=== PATIENT | female | born 1990 | race American Indian/Alaskan Native ===

== ENCOUNTER 2022-06-05 07:14 | Emergency (ER) | payer OTHER ==
[2022-06-05 08:35] LABS: Alanine Aminotransferase 18 units/L (7-56); Albumin 5.2 g/dL (3.9-5); BUN/Creatinine Ratio 10; Blood Urea Nitrogen 8 mg/dL (7-17); Calcium 10.2 mg/dL (8.4-10.2); Hemolysis Index 8
[2022-06-05 09:11] LABS: Basophils % (Auto) 0.5 % (0.0-1.8); Eosinophils % (Auto) 0.3 % (0.0-4.3); Hematocrit 45.9 % (30.3-42.9); Hemoglobin 15.7 gm/dl (10.1-14.3); Lymphocytes # (Auto) 2.1 K/mm3 (1.2-5.4); Lymphocytes % (Auto) 22.5 % (13.4-35.0); Mean Corpuscular HGB Conc 34 % (30-34); Mean Corpuscular Volume 99 fl (79-97); Monocytes # (Auto) 0.7 K/mm3 (0.0-0.8); Monocytes % (Auto) 7.2 % (0.0-7.3); Platelet Count 272 K/mm3 (140-440); Red Blood Count 4.62 M/mm3 (3.65-5.03); Red Cell Distribution Width 12.6 % (13.2-15.2)
[2022-06-05] MEDS ORDERED: SODIUM CHLORIDE 0.9% 500 ML 500 ML IV ONE (12:02)
[2022-06-05] MEDS ORDERED: METOCLOPRAMIDE 10 MG/2 ML INJ IV ONE (12:02)
[2022-06-05] MEDS ORDERED: diphenhydrAMINE 50 MG/ML VIAL IV ONE (12:02)
--- NOTE | 2022-06-05 12:03 | Emergency Department Report ---
ED General Adult HPI - General Chief complaint: Nausea/Vomiting/Diarrhea Stated complaint: 5 DAYS NO SOLIDS OR LIQUIDS Time Seen by Provider: 06/05/22 11:07 Source: patient, RN notes reviewed Mode of arrival: Ambulatory Limitations: No Limitations - History of Present Illness Initial comments: The patient was evaluated in the emergency department for symptoms described in the history of present illness. He/she was evaluated in the context of the [facility] COVID-19 pandemic, which necessitated consideration that the patient might be at risk for infection with the virus that causes COVID-19. Institutional protocols and algorithms that pertain to the evaluation of patients at risk for COVID-19 are in a state of rapid change based on information released by regulatory bodies including the CDC and federal and state organizations. These policies and algorithms were followed during the patient's care in the emergency department. Please note that these policies, procedures and recommendations changed on a rapid basis. During the history and physical examination, I am chaperoned by Ralph Schreiber. This patient is a 32-year-old female who states that she is not , who is a longtime marijuana consumer, occasional cigar smoker, who presents to the department today with a complaint of painless nausea and vomiting, which improves with taking a hot bath or hot shower. The patient denies headache, neck pain, chest pain, abdominal pain, shortness of breath and dysuria. The she is much improved with Reglan and fluids here in the emergency room. She last consumed marijuana about a week ago. She consumed hookah over the weekend, and is concerned that her symptoms may be related to hookah consumption. -: days(s) Severity scale (0 -10): 0 Consistency: now resolved Worsens with: none - Related Data Previous Rx's Medication Instructions Recorded Last Taken Type Birdie Root [Birdie] 250 mg PO QID PRN #30 capsule 06/05/22 Unknown Rx Metoclopramide [Reglan] 10 mg PO QID PRN #30 tablet 06/05/22 Unknown Rx Potassium Chloride [K-Dur] 20 meq PO BID #60 tab 06/05/22 Unknown Rx Promethazine [Phenergan] 25 mg SD Q6HR PRN #15 supp.rect 06/05/22 Unknown Rx Allergies Allergy/AdvReac Type Severity Reaction Status Date / Time latex Allergy Unknown Verified 06/05/22 07:28 Latex, Natural Rubber Allergy Unknown Verified 06/05/22 07:28 morphine Allergy Unknown Verified 06/05/22 07:28 ED Review of Systems ROS: Stated complaint: 5 DAYS NO SOLIDS OR LIQUIDS Other details as noted in HPI Comment: All other systems reviewed and negative Gastrointestinal: nausea, vomiting. denies: abdominal pain, diarrhea Genitourinary: denies: dysuria ED Past Medical Hx - Past Medical History Previous Medical History?: No - Surgical History Additional Surgical History: - Social History Smoking Status: Former Smoker - Medications Home Medications: Home Medications Medication Instructions Recorded Confirmed Last Taken Type Birdie Root [Birdie] 250 mg PO QID PRN #30 capsule 06/05/22 Unknown Rx Metoclopramide [Reglan] 10 mg PO QID PRN #30 tablet 06/05/22 Unknown Rx Potassium Chloride [K-Dur] 20 meq PO BID #60 tab 06/05/22 Unknown Rx Promethazine [Phenergan] 25 mg SD Q6HR PRN #15 supp.rect 06/05/22 Unknown Rx ED Physical Exam - General Limitations: No Limitations General appearance: alert, in no apparent distress - Head Head exam: Present: atraumatic, normocephalic - Eye Eye exam: Present: normal appearance, EOMI. Absent: nystagmus - ENT ENT exam: Present: normal exam, normal orophraynx, mucous membranes moist, normal external ear exam - Neck Neck exam: Present: normal inspection, full ROM. Absent: tenderness, meningismus - Respiratory Respiratory exam: Present: normal lung sounds bilaterally. Absent: respiratory distress, wheezes, rales, rhonchi, stridor, decreased breath sounds - Cardiovascular Cardiovascular Exam: Present: regular rate, normal rhythm, normal heart sounds. Absent: bradycardia, tachycardia, irregular rhythm, systolic murmur, diastolic murmur, rubs, gallop - GI/Abdominal GI/Abdominal exam: Present: soft, normal bowel sounds. Absent: distended, tenderness, guarding, rebound, rigid, pulsatile mass - Extremities Exam Extremities exam: Present: normal inspection, full ROM, normal capillary refill, other (2+ pulses noted in the bilateral upper and lower extremities. There is no palpable cord. negative Homans sign. Muscular compartments are soft. The pelvis is stable.). Absent: pedal edema, calf tenderness - Back Exam Back exam: Present: normal inspection, full ROM. Absent: tenderness, CVA tenderness (R), CVA tenderness (L), paraspinal tenderness, vertebral tenderness - Neurological Exam Neurological exam: Present: alert, oriented X3, normal gait, other (No facial droop. Tongue midline. Extraocular movements intact bilaterally. Facial sensation intact to light touch in V1, V2, V3 distribution bilaterally. 5 and a 5 strength in 4 extremities. Sensation intact to light touch in 4 extremities.). Absent: motor sensory deficit - Psychiatric Psychiatric exam: Present: normal affect, normal mood - Skin Skin exam: Present: warm, dry, intact, normal color. Absent: rash ED Course Vital Signs 06/05/22 06/05/22 07:32 12:41 Temperature 98.6 F Pulse Rate 63 76 Respiratory 16 Rate Blood Pressure 124/84 Blood Pressure 123/83 [Left] O2 Sat by Pulse 99 Oximetry - Reevaluation(s) Reevaluation #1: 06/05/22 14:11 Differential diagnosis, include but not limited to: Cannabinoid hyperemesis syndrome, dehydration, renal insufficiency, hepatic insufficiency Assessment and plan: 31-year-old female who is medically healthy, presenting with painless nausea and vomiting, which improves with taking a hot bath and hot shower. She is much improved with supportive care here in the department. This is most likely cannabinoid hyperemesis syndrome. Abdomen is soft and benign, without rebound, guarding or peritoneal signs. Laboratory studies essentially unremarkable with exception of minimal hypokalemia. Patient advised to discontinue marijuana consumption. She is advised as to the natural history of cannabinoid hyperemesis syndrome. The patient is observed in this department for hours without clinical decompensation. No active vomiting at this time. Can be discharged with as needed nausea medication, potassium supplementation, diet lifestyle modification and recommendations. All questions are answered. Return precautions are reviewed - Pulse Oximetry Interpretation Digit-Finger Initial Pulse Oximetry Readin O2 Sat by Pulse Oximetry: 99 Actions Taken: none ED Medical Decision Making - Lab Data Result diagrams: 06/05/22 07:49 06/05/22 07:49 Vital Signs 06/05/22 06/05/22 07:32 12:41 Temperature 98.6 F Pulse Rate 63 76 Respiratory 16 Rate Blood Pressure 124/84 Blood Pressure 123/83 [Left] O2 Sat by Pulse 99 Oximetry Lab Results 07/14/22 07/14/22 07/14/22 Range/Units 07:49 07:49 08:07 WBC 9.2 (4.5-11.0) K/mm3 RBC 4.62 (3.65-5.03) M/mm3 Hgb 15.7 H (10.1-14.3) gm/dl Hct 45.9 H (30.3-42.9) % MCV 99 H (79-97) fl MCH 34 H (28-32) pg MCHC 34 (30-34) % RDW 12.6 L (13.2-15.2) % Plt Count 272 (140-440) K/mm3 Lymph % (Auto) 22.5 (13.4-35.0) % [place] % (Auto) 7.2 (0.0-7.3) % Eos % (Auto) 0.3 (0.0-4.3) % Baso % (Auto) 0.5 (0.0-1.8) % Lymph # (Auto) 2.1 (1.2-5.4) K/mm3 [place] # (Auto) 0.7 (0.0-0.8) K/mm3 Eos # (Auto) 0.0 (0.0-0.4) K/mm3 Baso # (Auto) 0.0 (0.0-0.1) K/mm3 Seg Neutrophils % 69.5 (40.0-70.0) % Seg Neutrophils # 6.4 (1.8-7.7) K/mm3 Sodium 135 L (137-145) mmol/L Potassium 2.7 L* (3.6-5.0) mmol/L Chloride 93.1 L (98-107) mmol/L Carbon Dioxide 27 (22-30) mmol/L Anion Gap 18 mmol/L BUN 8 (7-17) mg/dL Creatinine 0.8 (0.6-1.2) mg/dL Estimated GFR > 60 ml/min BUN/Creatinine Ratio 10 % Glucose 109 H (65-100) mg/dL Calcium 10.2 (8.4-10.2) mg/dL Magnesium (1.7-2.3) mg/dL Total Bilirubin 1.10 (0.1-1.2) mg/dL AST 19 (5-40) units/L ALT 18 (7-56) units/L Alkaline Phosphatase 69 (35-129) units/L Total Protein 8.2 (6.3-8.2) g/dL Albumin 5.2 H (3.9-5) g/dL Albumin/Globulin Ratio 1.7 % Lipase 59 (13-60) units/L HCG, Quant (0-4) mIU/mL Salicylates (2.8-20.0) mg/dL Acetaminophen (10.0-30.0) ug/mL Plasma/Serum Alcohol (0-0.07) % 06/05/22 06/05/22 06/05/22 Range/Units 08:07 08:07 12:15 WBC (4.5-11.0) K/mm3 RBC (3.65-5.03) M/mm3 Hgb (10.1-14.3) gm/dl Hct (30.3-42.9) % MCV (79-97) fl MCH (28-32) pg MCHC (30-34) % RDW (13.2-15.2) % Plt Count (140-440) K/mm3 Lymph % (Auto) (13.4-35.0) % [place] % (Auto) (0.0-7.3) % Eos % (Auto) (0.0-4.3) % Baso % (Auto) (0.0-1.8) % Lymph # (Auto) (1.2-5.4) K/mm3 [place] # (Auto) (0.0-0.8) K/mm3 Eos # (Auto) (0.0-0.4) K/mm3 Baso # (Auto) (0.0-0.1) K/mm3 Seg Neutrophils % (40.0-70.0) % Seg Neutrophils # (1.8-7.7) K/mm3 Sodium (137-145) mmol/L Potassium (3.6-5.0) mmol/L Chloride (98-107) mmol/L Carbon Dioxide (22-30) mmol/L Anion Gap mmol/L BUN (7-17) mg/dL Creatinine (0.6-1.2) mg/dL Estimated GFR ml/min BUN/Creatinine Ratio % Glucose (65-100) mg/dL Calcium (8.4-10.2) mg/dL Magnesium 2.40 H (1.7-2.3) mg/dL Total Bilirubin (0.1-1.2) mg/dL AST (5-40) units/L ALT (7-56) units/L Alkaline Phosphatase (35-129) units/L Total Protein (6.3-8.2) g/dL Albumin (3.9-5) g/dL Albumin/Globulin Ratio % Lipase (13-60) units/L HCG, Quant < 2 (0-4) mIU/mL Salicylates < 0.3 L (2.8-20.0) mg/dL Acetaminophen (10.0-30.0) ug/mL Plasma/Serum Alcohol (0-0.07) % 06/05/22 06/05/22 Range/Units 12:15 12:15 WBC (4.5-11.0) K/mm3 RBC (3.65-5.03) M/mm3 Hgb (10.1-14.3) gm/dl Hct (30.3-42.9) % MCV (79-97) fl MCH (28-32) pg MCHC (30-34) % RDW (13.2-15.2) % Plt Count (140-440) K/mm3 Lymph % (Auto) (13.4-35.0) % [place] % (Auto) (0.0-7.3) % Eos % (Auto) (0.0-4.3) % Baso % (Auto) (0.0-1.8) % Lymph # (Auto) (1.2-5.4) K/mm3 [place] # (Auto) (0.0-0.8) K/mm3 Eos # (Auto) (0.0-0.4) K/mm3 Baso # (Auto) (0.0-0.1) K/mm3 Seg Neutrophils % (40.0-70.0) % Seg Neutrophils # (1.8-7.7) K/mm3 Sodium (137-145) mmol/L Potassium (3.6-5.0) mmol/L Chloride (98-107) mmol/L Carbon Dioxide (22-30) mmol/L Anion Gap mmol/L BUN (7-17) mg/dL Creatinine (0.6-1.2) mg/dL Estimated GFR ml/min BUN/Creatinine Ratio % Glucose (65-100) mg/dL Calcium (8.4-10.2) mg/dL Magnesium (1.7-2.3) mg/dL Total Bilirubin (0.1-1.2) mg/dL AST (5-40) units/L ALT (7-56) units/L Alkaline Phosphatase (35-129) units/L Total Protein (6.3-8.2) g/dL Albumin (3.9-5) g/dL Albumin/Globulin Ratio % Lipase (13-60) units/L HCG, Quant (0-4) mIU/mL Salicylates (2.8-20.0) mg/dL Acetaminophen 5.0 L (10.0-30.0) ug/mL Plasma/Serum Alcohol < 0.01 (0-0.07) % - EKG Data -: EKG Interpreted by Me EKG shows normal: sinus rhythm Rate: normal - EKG Data When compared to previous EKG there are: previous EKG unavailable 06/05/22 14:09 The EKG is interpreted at 13: 46 Sinus rhythm, 63 bpm. Normal axis, normal P wave axis, high left ventricular voltage, QTC 4 8 3 ms. This is an abnormal EKG. This is not a STEMI Critical care attestation.: If time is entered above; I have spent that time in minutes in the direct care of this critically ill patient, excluding procedure time. ED Disposition Clinical Impression: Marijuana use, Dehydration, Hypokalemia Disposition: 01 HOME / SELF CARE / HOMELESS Is pt being admited?: No Does the pt Need Aspirin: No Condition: Good Instructions: Hypokalemia, Dehydration, Adult, [id number], What You Need to Know About Marijuana Use Additional Instructions: Advance diet as tolerated, drink plenty of fluids, such as water, Pedialyte or Gatorade mixed with water. Avoid consumption of alcohol, tobacco, smoke products and marijuana. Avoid consumption of Motrin, ibuprofen, Naprosyn, Aleve, heavy and spicy foods. Take a hot bath or hot shower as often as as needed for symptom relief. Avoid consumption and exposure to smoke products as well as hookah. Patient may take the prescribed potassium as directed, or consume foods that are high in potassium, such as banana, avocado, or potato Patient may also purchase [id number] hot sauce from any supermarket, and apply hot sauce to the anterior abdominal wall, to assist with symptom control. We recommend follow-up with her primary care doctor or GI physician within the next week to 10 days. Suspect that patient has cannabinoid hyperemesis syndrome which may take up to 6 weeks to fully resolve. Patient may take the oral Reglan and birdie tablets as needed for nausea and vomiting, and Phenergan suppositories as needed for intractable nausea and vomiting not relieved by the oral Reglan or birdie tablets. Patient may take [id number] Tylenol, Pepcid, or Protonix as needed for physical pain. Please return to the emergency room right away with new pain, worsened pain, migration of pain, projectile vomiting, change in mental status, confusion, inability tolerate liquid feeds, new, worsened or different symptoms not present on the initial emergency room evaluation Referrals: [facility] [Provider Group] - 3-5 Days [facility] [Provider Group] - 3-5 Days Forms: Work/School Release Form(ED)
[2022-06-05 12:44] VITALS: BP 124/84
[2022-06-05] MEDS ORDERED: POTASSIUM CHLORIDE ER 20 MEQ TAB PO ONE (14:08)
[2022-06-05 14:30] LABS: INR 0.9 (0.87-1.13)
--- NOTE | 2022-06-08 15:05 | Electrocardiograph Report ---
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
== END 2022-06-05 15:16 | disposition home or self-care (01) ==
LOC: ED 07:14
DX: E86.0 Dehydration (principal); E87.6 Hypokalemia; Z87.891 Personal history of nicotine dependence; Z91.041 Radiographic dye allergy status; Z88.5 Allergy status to narcotic agent
CPT/HCPCS: 36415; 80053; 83690; 83735; 84702; 85025; 85610; 93005; 96361; 96374; 96375; 99283; J1200; J2765; J7040; 80320; G0480